=== PATIENT | female | born 1975 | race Caucasian/White ===

== ENCOUNTER 2019-07-13 09:30 | Outpatient (CLI) | payer OTHER, SELFPAY ==
[2019-07-13 10:36] LABS: Abs Immature Grans 0.01 k/cumm (0.0-0.09); Absolute Basophil Count 0.02 k/cumm (0.0-0.2); Absolute Eosinophil Count 0.16 k/cumm (0.0-0.7); Absolute Lymphocyte Count 1.04 k/cumm (1.2-3.4); Basophils % 0.4; Eosinophils % 3.1; HCT 44.3 % (36.0-46.0); HGB 14.8 g/dL (12.0-15.5); Immature Grans % 0.2; Lymphocytes % 20.3; Mean Corp. HGB Concentration 33.4 g/dL (32.0-36.0); Mean Corpuscular Hemoglobin 29.4 pg (27.0-33.0); Mean Corpuscular Volume 88.1 fL (80-95); Mean Platelet Volume 9.7 fL (8.0-11.0); Monocytes % 9.7; Neutrophils % 66.3; Platelet Count 274 x1000/uL (130-400); RBC 5.03 m/cumm (4.00-5.20); RBC Distribution Width 12.5 % (11.7-14.6); White Blood Cell Count 5.13 k/cumm (4.4-10.8)
[2019-07-13 10:43] LABS: Microalb ug/mg Crea 2.3 ug/mg Cr
[2019-07-13 11:32] LABS: BUN 10 mg/dL (7-18); CREATININE 0.84 mg/dL (0.55-1.02); Calcium 9.4 mg/dL (8.5-10.1); Calculated LDL 124 mg/dL; Chloride 104 mmol/L (98-107); Cholesterol 185 mg/dL (<200); Ferritin 21 ng/mL (8-252); Glucose 96 mg/dL (74-106); HDL Cholesterol 46 mg/dL (40-60); Potassium 3.7 mmol/L (3.5-5.1); Sodium 142 mmol/L (136-145); Triglyceride 75 mg/dL (<150)
[2019-07-13 11:39] LABS: Hemoglobin A1C 5.1 % (3.8-5.6)
== END 2019-07-13 09:50 ==
PROVIDERS: PCP Student in an Organized Health Care Education/Training Program; Visit Provider Student in an Organized Health Care Education/Training Program
DX: Z00.00 Encounter for general adult medical examination without abnormal findings (principal); R03.0 Elevated blood-pressure reading, without diagnosis of hypertension
CPT/HCPCS: 36415; 80048; 80061; 82043; 82570; 82728; 83036; 85025